=== PATIENT | female | born 1990 | race Caucasian/White ===

== ENCOUNTER 2022-05-25 01:46 | Emergency (ER) | payer SELFPAY ==
[~2022-05-25] VITALS: Ht 170.2 cm; Wt 75.0 kg
[2022-05-25 01:52] VITALS: BP 116/78
== END 2022-05-25 11:57 | disposition left against medical advice (07) ==
LOC: ER 01:46
DX: Z53.21 Procedure and treatment not carried out due to patient leaving prior to being seen by health care provider (principal)